=== PATIENT | male | born 1940 | race Caucasian/White ===

== ENCOUNTER → 2020-08-10 11:06 | Outpatient (BNVA) | payer MEDICARE, MEDICAID, SELFPAY | PROVIDERS: Family Provider Family Medicine; PCP Family Medicine; Visit Provider Nurse Practitioner Family | DX: R53.83 Other fatigue (principal); N40.0 Benign prostatic hyperplasia without lower urinary tract symptoms; E78.5 Hyperlipidemia, unspecified; E55.9 Vitamin D deficiency, unspecified; Z79.899 Other long term (current) drug therapy | CPT/HCPCS: 80053; 80061; 81003; 82306; 83036; 84153; 84443; 85025 ==

== ENCOUNTER → 2021-03-26 00:01 | Outpatient (BNVA) | payer MEDICARE, MEDICAID, SELFPAY | PROVIDERS: Family Provider Family Medicine; PCP Family Medicine; Visit Provider Nurse Practitioner Family | DX: N40.0 Benign prostatic hyperplasia without lower urinary tract symptoms (principal); N39.0 Urinary tract infection, site not specified; R73.09 Other abnormal glucose | CPT/HCPCS: 81003; 83036; 87086; G0103 ==

== ENCOUNTER → 2021-10-01 11:32 | Outpatient (BNVA) | payer MEDICARE, MEDICAID, SELFPAY | PROVIDERS: Family Provider Family Medicine; PCP Family Medicine; Visit Provider Nurse Practitioner | DX: E11.9 Type 2 diabetes mellitus without complications (principal); R73.09 Other abnormal glucose; N40.0 Benign prostatic hyperplasia without lower urinary tract symptoms | CPT/HCPCS: 80053; 83036; 84443; 85025 ==

== ENCOUNTER → 2021-12-02 15:00 | Outpatient (BNVA) | payer MEDICARE, MEDICAID, SELFPAY | PROVIDERS: Family Provider Family Medicine; PCP Family Medicine; Visit Provider Nurse Practitioner | DX: R35.0 Frequency of micturition (principal) | CPT/HCPCS: 81000 ==

== ENCOUNTER → 2022-01-14 09:27 | Outpatient (BNVA) | payer MEDICARE, MEDICAID, SELFPAY | PROVIDERS: Family Provider Family Medicine; PCP Family Medicine; Visit Provider Nurse Practitioner Family | DX: N40.0 Benign prostatic hyperplasia without lower urinary tract symptoms (principal); R10.9 Unspecified abdominal pain; R73.09 Other abnormal glucose; E11.9 Type 2 diabetes mellitus without complications; Z12.5 Encounter for screening for malignant neoplasm of prostate; M54.9 Dorsalgia, unspecified; R97.20 Elevated prostate specific antigen [PSA] | CPT/HCPCS: 80053; 81000; 83036; 85025; G0103 ==

== ENCOUNTER 2022-01-20 06:01 | Outpatient (CLI) | payer MEDICARE, MEDICAID, SELFPAY ==
[2022-01-20] MEDS: iohexol 350 mg/mL 100 mL Btl PO (06:56)
--- NOTE | 2022-01-20 08:00 | CT_ITS ---
WS: [id number] CT ABDOMEN PELVIS TECHNIQUE: Contrast-enhanced CT of the abdomen and pelvis with coronal and sagittal reformatted image s. CLINICAL INFORMATION: R10.9 - Unspecified abdominal pain COMPARISON: None. DLP: 845.[address] scans at [facility] use at least one of these dose optimization techniques: automated e xposure control; mA and/or kV adjustment per patient size (includes targeted exams where dose is matc hed to clinical indication); or iterative reconstruction. FINDINGS: Lung bases are well aerated. Mild diffuse fatty infiltration the liver. A few small low-attenuation l esions in the liver likely hepatic cysts. Normal portal vein and splenic vein. Normal spleen. Normal GE junction. Normal pancreatic parenchymal enhancement. Gallbladder is contracted. Adrenal glands are normal. Normal renal parenchymal enhancement. No hydronephrosis. LEFT renal cysts the largest measur ing 3.2 CM. Normal caliber abdominal aorta. Celiac and SMA are patent. Sigmoid diverticulosis. No evidence of acu te diverticulitis. No evidence of high-grade small or large bowel obstruction. Markedly enlarged hete rogeneous prostate measuring 5.7 x 5.0 CM. 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 This is migrated today deeper int o the pelvis along the dorsal bladder and adjacent to the sigmoid colon in the RIGHT lower pelvis. Sc lerotic bone lesion RIGHT ilium adjacent to the RIGHT SI joint nonspecific but likely benign bone isl and. CT/CT abdomen pelvis w con* [id number] IMPRESSION: 1. Markedly enlarged heterogeneously enhancing prostate progressed compared to prior examinations suspicious for neoplasia/hyperplasia measuring 5.7 x 5.0 CM . Recommend correlation PSA. 2. Evidence of bladder outlet obstruction with bladder wall thickening. 3. 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 This is migrated into the RIGHT lower pelvis today dorsal to the bladder and adjacent to the sigmoid colon. 4. No hydronephrosis in either kidney. Incidental LEFT renal cysts the largest measuring 3.2 CM. 5. No other acute findings.
[2022-01-20] MEDS: iohexol 350 mg/mL 100 mL Btl IV (08:04)
== END 2022-01-20 06:02 | disposition home or self-care (01) ==
LOC: RAD 06:03
PROVIDERS: PCP Nurse Practitioner Family; Visit Provider Nurse Practitioner Family
DX: R10.9 Unspecified abdominal pain (principal); N40.0 Benign prostatic hyperplasia without lower urinary tract symptoms; N32.0 Bladder-neck obstruction
CPT/HCPCS: 74177

== ENCOUNTER → 2022-01-21 09:31 | Outpatient (BNVA) | payer MEDICARE, MEDICAID, SELFPAY | PROVIDERS: PCP Nurse Practitioner Family; Visit Provider Nurse Practitioner Family | DX: R97.20 Elevated prostate specific antigen [PSA] (principal); N40.0 Benign prostatic hyperplasia without lower urinary tract symptoms; E11.9 Type 2 diabetes mellitus without complications | CPT/HCPCS: 82962 ==

== ENCOUNTER 2022-03-05 20:57 | Emergency (ER) | payer MEDICARE, MEDICAID, SELFPAY ==
[2022-03-05 20:59] VITALS: BP 114/72; PULSE 63; RESP 17; TEMP 38.1; O2SAT 96; BMI 19.3
[2022-03-05 21:06] VITALS: PULSE 66; RESP 15; O2SAT 98
--- NOTE | 2022-03-05 21:09 | XRR_ITS ---
PROCEDURE INFORMATION: Exam: XR Chest Exam date and time: 03/05/2022 9:13 PM Age: 81 years old Clinical indication: Cough TECHNIQUE: Imaging protocol: Radiologic exam of the chest. Views: 1 view. COMPARISON: CR XR chest 1V [id number] 01/14/2017 3:49 PM FINDINGS: Lungs: No consolidation. Pleural spaces: Unremarkable. No pleural effusion. No pneumothorax. Heart/Mediastinum: No cardiomegaly. Bones/joints: No acute findings. XR/XR chest 1V portable [id number] IMPRESSION: No acute findings.
[2022-03-05] MEDS: sodium chloride 0.9% 1,000 ML 999 ML IV (21:20)
[2022-03-05 21:27] LABS: Basophils % 0.2 %; Hemoglobin 14.3 g/dL (11.7-16.6); Lymphocytes # 0.6 10^3/uL (0.8-4.8); Lymphocytes % 13.2 %; Mean Corpuscular HGB Conc 32.5 g/dL (30.0-36.0); Mean Corpuscular Hemoglobin 29.2 pg (28.0-34.0); Monocytes # 0.4 10^3/uL (0.2-0.9); Monocytes % 9.3 %; Neutrophils # 3.55 10^3/uL (1.8-7.7); Neutrophils % 76.7 %; Nucleated Red Blood Cells % 0 %; Platelet Count 129 10^3/cmm (130-400); Red Blood Count 4.89 10^6/uL (4.1-5.3); Red Cell Distribution Width 12.8 % (12.1-15.1); White Blood Count 4.6 10^3/uL (4.0-10.0)
[2022-03-05 21:42] LABS: Influenza A by IFA negative (Negative); Influenza B by IFA negative (Negative)
--- NOTE | 2022-03-05 21:44 | W.ED.NAVMDI ---
HPI - Nausea/Vomiting/Diarrhea General: Chief complaint: Nausea/Vomiting/Diarrhea Stated complaint: N/V/D Time Seen by Provider: 03/05/22 21:04 Source: patient and EMS Mode of arrival: EMS Limitations: no limitations History of Present Illness: 81-year-old male states over the last 2 days he has been having severe nausea with no vomiting states he is also had some body aches low-grade fevers and a cough he denies any abdominal pain or chest pain. He has had no sick contacts he denies any worsening factors. States he was given Zofran in route and he feels much improved. Associated nausea: Yes Associated symtoms: Reports nausea; Denies chest pain, dysuria or headache(s) Review of Systems Const: Reports: fever(s) and body aches Eyes: Denies: blurry vision or eye discomfort ENMT: Denies: throat pain or dental pain Card: Denies: chest pain Resp: Reports: non-productive cough GI: Reports: nausea and vomiting : Denies: dysuria Musc: Denies: neck pain or back pain Skin/Breast: Denies: rash Neuro: Denies: headache(s) Psych: Denies: depression [place]/Lymph: Denies: easy bruising All/Imm: Denies: urticaria PFSH ED PFSH: Medical History BPH (benign prostatic hyperplasia) Cerumen impaction Diabetes mellitus, type II Elevated hemoglobin A1c Urinary tract infection Social History Smoking and tobacco status: never smoked Second hand smoke exposure: No Alcohol intake: never Desire information about alcohol rehabilitation?: No Counseling given: No Physical Exam Const: COMMON NORMALS: no acute distress, patient oriented x3 and healthy appearing HENMT: COMMON NORMALS: normocephalic and atraumatic HEAD & SCALP: normocephalic and atraumatic Eye: COMMON NORMALS: Equal, round and reactive pupils present and EOMs intact bilaterally PUPIL: Yes Equal, round and reactive pupils present Neck/C-Spine: COMMON NORMALS: full ROM and supple Chest: COMMONS NORMALS: normal inspection of the chest and normal palpation of entire chest wall Resp: COMMON NORMALS: normal respiratory effort, No retractions, No use of accessory muscles and clear to auscultation bilaterally AUSCULTATION: clear to auscultation bilaterally Cardio: COMMON NORMALS: regular rate, regular rhythm and No murmurs present (Cardio) RATE: regular rate RHYTHM: regular rhythm GI: COMMON NORMALS: Normal to inspection, nondistended, normoactive bowel sounds present, Soft to palpation, non-tender and no masses PALPATION: Yes Soft to palpation Extremity: COMMON NORMALS: normal to inspection and full ROM Neuro: COMMON NORMALS: patient oriented x3, moves all extremities and no focal motor deficits Psych: COMMON NORMALS: mental status grossly normal, Normal thought process present and cooperative THOUGHT PROCESS: Normal thought process present Skin: COMMON NORMALS: no rashes or lesions noted and no wounds GENERAL SKIN EXAM: no rashes or lesions noted Course Vital Signs: Vital signs: Vital Signs Temperature 100.6 F H 03/05/22 20:59 Pulse Rate 69 03/05/22 23:08 Respiratory Rate 20 H 03/05/22 23:08 Blood Pressure 110/58 03/05/22 23:08 Pulse Oximetry 93 03/05/22 23:08 Oxygen Delivery Me thod 03/05/22 21:06 MDM - Nausea/Vomiting/Diarrhea Medical Decision Making Patient presents with cough low-grade fevers along with some nausea he did test positive for COVID he is well-appearing his x-ray is clear he is not hypoxic he feels much improved he stable for discharge he is to follow-up his PCP and return if worsening he understands agrees to plan. Lab Data 03/05/22 21:15 03/05/22 21:15 Radiology Impressions Chest X-Ray 03/05/22 21:09 IMPRESSION: No acute findings. Laboratory Results WBC 4.6 10^3/uL (4.0-10.0) 03/05/22 21:15 RBC 4.89 10^6/uL (4.1-5.3) 03/05/22 21:15 Hgb 14.3 g/dL (11.7-16.6) 03/05/22 21:15 Hct 44.0 % (42.0-52.0) 03/05/22 21:15 MCV 90.0 fl (80-94) 03/05/22 21:15 MCH 29.2 pg (28.0-34.0) 03/05/22 21:15 MCHC 32.5 g/dL (30.0-36.0) 03/05/22 21:15 RDW 12.8 % (12.1-15.1) 03/05/22 21:15 Plt Count 129 10^3/cmm (130-400) L 03/05/22 21:15 MPV 11.0 fL (7.4-10.4) H 03/05/22 21:15 Neut % (Auto) 76.7 % 03/05/22 21:15 Lymph % (Auto) 13.2 % 03/05/22 21:15 [place] % (Auto) 9.3 % 03/05/22 21:15 Eos % (Auto) 0.0 % 03/05/22 21:15 Baso % (Auto) 0.2 % 03/05/22 21:15 Neut # (Auto) 3.55 10^3/uL (1.8-7.7) 03/05/22 21:15 Lymph # (Auto) 0.6 10^3/uL (0.8-4.8) L 03/05/22 21:15 [place] # (Auto) 0.4 10^3/uL (0.2-0.9) 03/05/22 21:15 Eos # (Auto) 0.0 10^3/uL (0.0-0.8) 03/05/22 21:15 Baso # (Auto) 0.0 10^3/uL (0.0-0.1) 03/05/22 21:15 Nucleated RBC % (auto) 0 % 03/05/22 21:15 Nucleated RBCs # 0.0 /100WBC 03/05/22 21:15 Sodium 132 mmol/L (136-145) L 03/05/22 21:15 Potassium 3.9 mmol/L (3.5-5.1) 03/05/22 21:15 Chloride 93 mmol/L (98-107) L 03/05/22 21:15 Carbon Dioxide 26 mmol/L (22-29) 03/05/22 21:15 Anion Gap 16.9 (5-19) 03/05/22 21:15 BUN 22 mg/dL (8-23) 03/05/22 21:15 Creatinine 0.9 mg/dL (0.7-1.2) 03/05/22 21:15 GFR Calculation Not Reportable 03/05/22 21:15 Glucose 182 mg/dL (65-115) H 03/05/22 21:15 Calculated Osmolality 282 mOsm/kg (285-295) L 03/05/22 21:15 Calcium 9.1 mg/dL (8.5-10.5) 03/05/22 21:15 Total Bilirubin 0.4 mg/dL (0.15-1.2) 03/05/22 21:15 AST 17 U/L (0-40) 03/05/22 21:15 ALT 13 U/L (0-41) 03/05/22 21:15 Alkaline Phosphatase 92 U/L (40-130) 03/05/22 21:15 Total Protein 7.1 g/dL (6.6-8.7) 03/05/22 21:15 Albumin 3.8 g/dL (3.5-5.2) 03/05/22 21:15 Globulin 3.3 g/dL (1.3-4.6) 03/05/22 21:15 Lipase 25 U/L (13-60) 03/05/22 21:15 Influenza Type A Ag negative (Negative) 03/05/22 21:15 Influenza Type B Ag negative (Negative) 03/05/22 21:15 SARS-CoV-2 Ag (Rapid) positive (Negative) 03/05/22 21:54 Discharge Plan Discharge Patient Disposition: Home Clinical Impression: COVID-19 Condition: Stable Prescriptions: New ondansetron 4 mg tablet,disintegrating 4 mg PO Q6H PRN (Reason: nausea and vomiting) Qty: 14 0RF No Action sitagliptin 100 mg tablet 100 mg PO DAILY Qty: 90 0RF (DME) blood sugar diagnostic Strip See Rx Instructions .Route Qty: 50 0RF Rx Instructions: Test 1xdaily in am fasting (DME) blood-glucose meter [Blood Glucose Monitoring] Kit See Rx Instructions .ROUTE .MEDSUPPLY Qty: 1 0RF Rx Instructions: Test 1xdaily in am, fasting tamsulosin [Flomax] 0.4 mg capsule 0.4 mg PO DAILY Farxiga 5 mg tablet 5 mg PO DAILY Qty: 30 0RF Discharge Orders: Discharge ED (Routine); Ordered 03/05/22 Ordered By: Elba Pepper Referrals: Gia Mills FNP [Primary Care Provider] - 1-3 days Discharge Diet: Advance as tolerated Discharge Activity: Resume usual activity Patient Instructions: COVID-19 (Coronavirus Disease 2019) (ED) Coding Level of Care Code ED [employer] for [employer]g Fwd Exam Comprehensive
[2022-03-05] MEDS: acetaminophen 325 mg Tablet 650 MG PO (21:55)
[2022-03-05 21:56] LABS: Alanine Aminotransferase 13 U/L (0-41); Albumin Level 3.8 g/dL (3.5-5.2); Alkaline Phosphatase 92 U/L (40-130); Aspartate Amino Transferase 17 U/L (0-40); Carbon Dioxide 26 mmol/L (22-29); Lipase 25 U/L (13-60); Potassium 3.9 mmol/L (3.5-5.1)
[2022-03-05 22:14] LABS: Anion Gap 16.9 (5-19); Blood Urea Nitrogen 22 mg/dL (8-23); Calcium 9.1 mg/dL (8.5-10.5); Chloride 93 mmol/L (98-107); Glucose 182 mg/dL (65-115); Osmolality Calculated 282 mOsm/kg (285-295); Sodium 132 mmol/L (136-145); Total Bilirubin 0.4 mg/dL (0.15-1.2); Total Protein 7.1 g/dL (6.6-8.7)
[2022-03-05 22:15] LABS: Globulin 3.3 g/dL (1.3-4.6)
[2022-03-05 22:56] LABS: SARS Covid-2 Antigen positive (Negative)
[2022-03-05 23:08] VITALS: BP 110/58; PULSE 69; RESP 20; O2SAT 93
== END 2022-03-05 23:15 | disposition home or self-care (01) ==
PROVIDERS: Emergency Provider Emergency Medicine; PCP Nurse Practitioner Family
DX: U07.1 COVID-19 (principal); E11.9 Type 2 diabetes mellitus without complications
CPT/HCPCS: 71045; 80053; 83690; 85025; 87426; 87804; 96360; 99284; J7030

== ENCOUNTER → 2022-04-01 10:35 | Outpatient (BNVA) | payer MEDICARE, MEDICAID, SELFPAY | PROVIDERS: PCP Nurse Practitioner Family; Visit Provider Nurse Practitioner Family | DX: R73.09 Other abnormal glucose (principal); I10 Essential (primary) hypertension; E11.9 Type 2 diabetes mellitus without complications | CPT/HCPCS: 80053; 80061; 83036 ==

== ENCOUNTER → 2022-07-03 09:50 | Outpatient (BNVA) | payer MEDICARE, MEDICAID, SELFPAY | PROVIDERS: PCP Nurse Practitioner Family; Visit Provider Nurse Practitioner Family | DX: I10 Essential (primary) hypertension (principal); E11.9 Type 2 diabetes mellitus without complications; D69.6 Thrombocytopenia, unspecified | CPT/HCPCS: 80053; 83036; 85025 ==

== ENCOUNTER → 2022-10-23 09:57 | Outpatient (BNVA) | payer MEDICARE, MEDICAID, SELFPAY | PROVIDERS: PCP Nurse Practitioner Family; Visit Provider Nurse Practitioner Family | DX: R53.83 Other fatigue (principal); E78.5 Hyperlipidemia, unspecified; E11.9 Type 2 diabetes mellitus without complications; I10 Essential (primary) hypertension | CPT/HCPCS: 80053; 80061; 83036; 84443 ==

== ENCOUNTER → 2023-02-18 09:21 | Outpatient (BNVA) | payer MEDICARE, MEDICAID, SELFPAY | PROVIDERS: PCP Nurse Practitioner Family; Visit Provider Nurse Practitioner Family | DX: Z12.5 Encounter for screening for malignant neoplasm of prostate (principal); E78.5 Hyperlipidemia, unspecified; E11.9 Type 2 diabetes mellitus without complications; I10 Essential (primary) hypertension | CPT/HCPCS: 80053; 80061; 83036; G0103 ==

== ENCOUNTER → 2023-05-27 08:26 | Outpatient (BNVA) | payer MEDICARE, MEDICAID, SELFPAY | PROVIDERS: PCP Nurse Practitioner Family; Visit Provider Nurse Practitioner Family | DX: E11.9 Type 2 diabetes mellitus without complications (principal) | CPT/HCPCS: 83036 ==

== ENCOUNTER → 2023-09-14 09:23 | Outpatient (BNVA) | payer MEDICARE, MEDICAID, SELFPAY | PROVIDERS: PCP Nurse Practitioner Family; Visit Provider Nurse Practitioner Family | DX: E11.65 Type 2 diabetes mellitus with hyperglycemia (principal); N40.0 Benign prostatic hyperplasia without lower urinary tract symptoms; R73.09 Other abnormal glucose | CPT/HCPCS: 80053; 80061; 83036; 84153; 85025 ==

== ENCOUNTER → 2023-12-29 09:20 | Outpatient (BNVA) | payer MEDICARE, MEDICAID, SELFPAY | PROVIDERS: PCP Nurse Practitioner Family; Visit Provider Nurse Practitioner Family | DX: R97.20 Elevated prostate specific antigen [PSA] (principal); N40.0 Benign prostatic hyperplasia without lower urinary tract symptoms | CPT/HCPCS: 84153 ==

== ENCOUNTER → 2024-04-11 10:34 | Outpatient (BNVA) | payer MEDICARE, MEDICAID, SELFPAY | PROVIDERS: PCP Nurse Practitioner Family; Visit Provider Nurse Practitioner Family | DX: I10 Essential (primary) hypertension (principal); E11.65 Type 2 diabetes mellitus with hyperglycemia | CPT/HCPCS: 80053; 80061; 83036 ==

== ENCOUNTER → 2024-08-01 08:43 | Outpatient (BNVA) | payer MEDICARE, MEDICAID, SELFPAY | PROVIDERS: PCP Nurse Practitioner Family; Visit Provider Nurse Practitioner Family | DX: E11.65 Type 2 diabetes mellitus with hyperglycemia (principal) | CPT/HCPCS: 80053; 83036; 85025 ==

== ENCOUNTER → 2024-11-24 08:34 | Outpatient (BNVA) | payer MEDICARE, MEDICAID, SELFPAY | PROVIDERS: PCP Nurse Practitioner Family; Visit Provider Nurse Practitioner Family | DX: R73.09 Other abnormal glucose (principal) | CPT/HCPCS: 83036 ==